=== PATIENT | female | born 1990 | race Caucasian/White ===

== ENCOUNTER 2019-03-08 05:05 | Inpatient (IN) | payer MEDICAID ==
[2019-03-08] MEDS ORDERED: OXYTOCIN 20 UNIT/1000ML DRIP 20,000 MILLIUNITS/1,000 ML BAG IV ONE (05:23)
[2019-03-08] MEDS ORDERED: LACTATED RINGERS 1,000 ML ONE (05:24)
[2019-03-08] MEDS ORDERED: ePHEDrine SULFATE 50 MG/1 ML INJ IV PRN (05:41)
[2019-03-08] MEDS ORDERED: TERBUTALINE 1 MG/1 ML INJ SUB-Q PRN (05:41)
[2019-03-08] MEDS ORDERED: LIDOCAINE (2%) 20 MG/1 ML VIAL 20 ML MDV INFILTRATI ONE (05:41)
[2019-03-08] MEDS ORDERED: MINERAL OIL 30 ML ORAL LIQD PO PRN (05:41)
[2019-03-08] MEDS ORDERED: TERBUTALINE 1 MG/1 ML INJ IVP PRN (05:41)
--- NOTE | 2019-03-08 05:43 | History and Physical Report ---
History of Present Illness Date of examination: 03/08/19 Date of admission: 03/08/19 05:24 Chief complaint: Contractions History of present illness: Pt is a 28 yo at 39.4 weeks EGA who presents with regular uterine contractions. She reports positive movement and denies LOF or vaginal bleeding. She has received care with [employer]. She has had a uncomplicated . 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 No current lesion or prodrome. She is GBS negative. Past History Past Medical History: no pertinent history Past Surgical History: no surgical history CALKER History: chlamydia (remote history), herpes (seropositive) Family/Genetic History: diabetes Social history: no significant social history - Obstetrical History Expected Date of Delivery: 03/11/19 Actual Gestation: 39 Week(s) 4 Day(s) : 5 Para: 2 Hx # Term Pregnancies: 2 Induced : 2 Number of Living Children: 2 Medications and Allergies Allergies Allergy/AdvReac Type Severity Reaction Status Date / Time No Known Allergies Allergy Unverified 03/08/19 05:28 Home Medications Medication Instructions Recorded Confirmed Last Taken Type valACYclovir [Valtrex] 1 tab PO BID 03/08/19 03/08/19 03/07/19 History Active Meds: Active Medications Ephedrine Sulfate (Ephedrine Sulfate) 10 mg IV Q2M PRN PRN Reason: Hypotension Oxytocin/Sodium Chloride (Pitocin/Ns 20 Unit/1000ml Drip) 20 units in 1,000 mls @ 125 mls/hr IV DIRECT LUIS M Oxytocin/Sodium Chloride (Pitocin/Ns 30 Unit/500ml) 30 units in 500 mls @ 1 mls/hr IV TITR LUIS M; Protocol Lactated Ringer's (Lactated Ringers) 1,000 mls @ 125 mls/hr IV DIRECT LUIS M Mineral Oil (Mineral Oil) 30 ml PO QHS PRN PRN Reason: Constipation Terbutaline Sulfate (Brethine) 0.25 mg SUB-Q ONCE PRN PRN Reason: Hyperstimulation/Hypertonicity Terbutaline Sulfate (Brethine) 0.25 mg IVP ONCE PRN PRN Reason: Hyperstimulation/Hypertonicity Review of Systems All systems: negative Genitourinary: contractions, no vaginal bleeding, no leakage of fluid, no genital sores - Physical Exam Abdomen: Positive: soft Genitourinary (Female): Positive: normal external genitalia Uterus: Positive: enlarged (gravid, EFW 8 lb) Extremities: Positive: normal - Obstetrical FHR: category 1 Uterine Contraction Monitor Mode: External Cervical Dilatation: 8 Uterine Contraction Frequency (min): 1.5 Uterine Contraction Duration: 60 sec Uterine Contraction Pattern: Regular Uterine Tone Measurement Phase: Contraction Uterine Contraction Intensity: Strong/Firm Results All other labs normal. Assessment and Plan 28 yo at 39.4 weeks EGA in active labor Membranes intact GBS negative HSV-2 seropositive without current lesion Admit for labor Anticipate
[2019-03-08 05:54] LABS: Hematocrit 38.8 % (30.3-42.9); Hemoglobin 12.7 gm/dl (10.1-14.3); Mean Corpuscular HGB Conc 33 % (30-34); Mean Corpuscular Volume 83 fl (79-97); Red Blood Count 4.65 M/mm3 (3.65-5.03)
[2019-03-08] MEDS ORDERED: OXYTOCIN 20 UNIT/1000ML DRIP 20 UNITS/1,000 ML BAG IV SCH (06:00)
[2019-03-08] MEDS ORDERED: LACTATED RINGERS 1,000 ML IV SCH (06:00)
[2019-03-08] MEDS ORDERED: OXYTOCIN DRIP 30 UNITS/500 ML BAG IV SCH (06:00)
--- NOTE | 2019-03-08 06:27 | Procedure Note ---
OB Delivery Note - Delivery Date of Delivery: 03/08/19 Surgeon: MICHAEL POLO ([facility]) Estimated blood loss: 100cc - Vaginal Delivery presentation: vertex Delivery position: OA Intrapartum events: none Delivery induction: none Delivery monitor: external FHT, external uterine Route of delivery: Delivery placenta: spontaneous Delivery cord: 3 umbilical vessels Episiotomy: none Delivery laceration: none Anesthesia: none Delivery comments: Pt felt urge to push and progressed to of vigorous female . Head delivered OA, restituted LOT with manual extension and flexion of maternal legs. Posterior nuchal hand noted, no nuchal cord. Shoulders followed easily. Infant to maternal abdomen, stimulated and bulb suctioned. Placenta delivered spontan eously and intact, 3 vc, several fluid-filled cysts noted, sent to pathology. Cord clamped and cut by FOB. No lacerations noted. EBL 100ml. deep suctioned by NICU, vigorous and doing well. - A at 1 minute: 8 at 5 minutes: 9 Gender: Female
[2019-03-08] MEDS ORDERED: MAGNESIUM HYDROXIDE (MOM) ORAL LIQD UDC PO PRN (06:28)
[2019-03-08] MEDS ORDERED: PROMETHAZINE 25 MG RECT SUPP PR PRN (06:28)
[2019-03-08] MEDS ORDERED: LANOLIN/ZINC/DIMETHICONE (LANSINOH) 7 GM TP PRN (06:28)
[2019-03-08] MEDS ORDERED: diphenhydrAMINE 25 MG CAP PO PRN (06:28)
[2019-03-08] MEDS ORDERED: ONDANSETRON 4 MG/2 ML INJ IV PRN (06:28)
[2019-03-08] MEDS ORDERED: PROMETHAZINE 25 MG TAB PO PRN (06:28)
[2019-03-08] MEDS ORDERED: WITCH HAZEL/ GLYCERIN PAD TP PRN (06:28)
[2019-03-08] MEDS ORDERED: ACETAMINOPHEN 325 MG TAB PO PRN (06:28)
[2019-03-08 06:57] LABS: Platelet Count 252 K/mm3 (140-440)
[2019-03-08] MEDS: PRENATAL VIT27-FE FUMARATE-FOLIC ACID VIT TAB PO SCH (10:37)
[2019-03-08] MEDS: IBUPROFEN 600 MG TAB PO SCH ×4 (10:37→23:23)
[2019-03-08] MEDS: FERROUS SULFATE 325 MG TAB PO SCH ×2 (10:37→21:39)
[2019-03-08 21:23] LABS: Hematocrit 31.1 % (30.3-42.9); Hemoglobin 10.5 gm/dl (10.1-14.3)
[2019-03-09] MEDS: IBUPROFEN 600 MG TAB PO SCH ×4 (05:29→23:05)
[2019-03-09] MEDS ORDERED: TETANUS,DIPH,PERTUSS(ACELL) VACCINE 0.5 ML SYRINGE IM ONE (06:00)
--- NOTE | 2019-03-09 08:22 | Progress Note ---
Assessment and Plan A/P DOing well PPD1 vss d/c home tomorrow Subjective - Subjective Date of service: 03/09/19 Principal diagnosis: s/p Patient reports: appetite normal, voiding normally, pain well controlled, flatus, ambulating normally [place]: doing well Objective - Vital Signs Latest vital signs: Vital Signs Temp Pulse Resp BP Pulse Ox 03/09/19 00:01 97.6 F 68 18 102/52 99 03/08/19 16:32 97.6 F 74 19 96/49 97 03/08/19 08:39 97.5 F L 75 20 114/72 98 Intake and Output 03/08/19 03/09/19 03/09/19 23:59 07:59 15:59 Intake Total 480 360 Balance 480 360 Intake: Intake, Free Water 480 360 Other: # Voids Void 2 2 - Exam Breasts: Present: normal Cardiovascular: Present: Regular rate, Normal S1 Lungs: Present: Clear to auscultation, Normal air movement Abdomen: Present: normal appearance, soft, normal bowel sounds. Absent: distention, tenderness, guarding Vulva: both: normal Uterus: Present: normal, firm, fundal height below umbilicus. Absent: bogginess, tenderness Extremities: Present: normal Deep Tendon Reflex Grade: Normal +2 Incision: Present: normal
--- NOTE | 2019-03-09 08:24 | Discharge Summary ---
Providers - Providers Date of Admission: 03/08/19 05:24 Date of discharge: 03/10/19 Attending physician: JIMENEZ SCHREIBER Primary care physician: JIMENEZ SCHREIBER Hospitalization Reason for admission: active labor Delivery: Episiotomy: none Laceration: none Incision: normal, suppurative, intact Other procedures: none complications: none Discharge diagnosis: IUP at term delivered [place] baby: female Hospital course: routine PP care. F/u in 4 weeks for PP Condition at discharge: Good Disposition: DC-01 TO HOME OR SELFCARE Plan - Discharge Medications Prescriptions: Ferrous Sulfate [Ferrous Sulfate 324 MG] 324 mg PO BID #60 tablet. Ibuprofen [Motrin] 600 mg PO Q6H PRN #60 tablet PRN Reason: Pain - Provider Discharge Summary Activity: routine, no sex for 6 weeks, no strenuous exercise Diet: routine Instructions: routine Additional instructions: [] Smoking cessation referral if applicable(refer to patient education folder for contact #) [] Refer to [facility]'s [facility] Booklet Call your doctor immediately for: * Fever > 100.5 * Heavy vaginal bleeding ( >1 pad per hour) * Severe persistent headache * Shortness of breath * Reddened, hot, painful area to leg or breast * Drainage or odor from incision. * Keep incision clean and dry at all times and follow doctor's instructions re garding bathing/showering - Follow up plan Follow up: JIMENEZ SCHREIBER MD [Primary Care Provider] - 03/31/19
[2019-03-09] MEDS: FERROUS SULFATE 325 MG TAB PO SCH ×2 (09:41→21:32)
[2019-03-09] MEDS: PRENATAL VIT27-FE FUMARATE-FOLIC ACID VIT TAB PO SCH (09:41)
[2019-03-09] MEDS ORDERED: FLU VACC QUAD 2019-20 (3 YR UP)/PF 60 MCG/0.5 ML SYRINGE IM ONE (12:00)
[2019-03-10] MEDS: IBUPROFEN 600 MG TAB PO SCH ×2 (05:22→17:19)
[2019-03-10] MEDS: PRENATAL VIT27-FE FUMARATE-FOLIC ACID VIT TAB PO SCH (09:34)
[2019-03-10] MEDS: FERROUS SULFATE 325 MG TAB PO SCH (09:34)
[2019-03-10 18:17] VITALS: BP 111/52
== END 2019-03-10 16:35 | disposition home or self-care (01) | DRG 775 ==
LOC: TRG 05:05 → LD 05:24 → OB 09:07
PROVIDERS: ADMIT Obstetrics & Gynecology; ATTEND Obstetrics & Gynecology
PROC: 10E0XZZ Delivery of Products of Conception, External Approach (ICD-10-PCS; principal; 2019-03-08)
DX: O80 Encounter for full-term uncomplicated delivery (principal); Z3A.39 39 weeks gestation of pregnancy; Z37.0 Single live birth; Z83.3 Family history of diabetes mellitus
CPT/HCPCS: 36415; 85014; 85018; 85027; 88305; 88307; 90471; 90686; 90715; G0378; J2590; J7120